=== PATIENT | female | born 1955 | race African-American/Black ===

== ENCOUNTER 2016-12-22 21:53 | Inpatient (IN) | payer SELFPAY ==
--- NOTE | ~2016-12-22 | DS ---
Discharge Summary [address] [place]. [address] NAME: GENET RUIZ : 53 STATUS : DIS Nguyen PAT#: [id number] AGE: 61 ADM/REG DATE : 12/23/16 MR#: [id number] REPORT SERV DATE: 12/26/16 DICTATED BY: JOLLY AGUAYO DATE: 12/25/16 REPORT STATUS : Draft TRANSCRIBED BY: AMANDA DATE: 12/25/16 ADMISSION DATE: 12/23/2016 DISCHARGE DATE: 12/25/2016 DISCHARGE DIAGNOSIS: 1. Hypokalemia. 2. Syncope secondary to electrolyte abnormalities. 3. Alcohol use. 4. Headache. 5. Abdominal pain with gallstones. 6. Chronic systolic heart failure. 7. Reactive lymph node in cervical chain with sinusitis. Discharge with daily weights at home. Follow PCP in one week for blood pressure and potassium check and follow up reactive nodes in neck. May require CT neck if not resolved after treatment with antibiotics. 8. Follow up with outpatient psychology. 9. Encourage continued follow with alcoholics anonymous and information for . Outpatient followup additionally with for incidental gallstones in 3 to 6 weeks. DISCHARGE MEDICATIONS: Amlodipine 5 mg one tab p.o. daily; atenolol decreased to 25 mg one tab p.o. daily instead of b.i.d.; Librium 10 mg one tab p.o. t.i.d. x3 days, then b.i.d. x3 days, then daily x3 days, then 5 mg one tab p.o. daily x3 days; vitamin D 1000 units p.o. daily; Prozac 40 mg one tab p.o. every morning; Hyzaar discontinued, changed to Cozaar 50 mg one tab p.o. daily; Mag oxide 600 mg one tab p.o. b.i.d.; nicotine patch 21 mg topical daily; Protonix 40 mg one tab p.o. daily p.r.n. reflux; potassium chloride 20 mEq p.o. daily; Aldactone 25 mg p.o. daily; Carafate 1 g p.o. before meals and at bedtime; thiamine 100 mg one tab p.o. daily x5 days; Lasix 20 mg one tab p.o. daily for weight gain of 3 pounds a day or 5 pounds a week; amoxicillin 500 mg p.o. b.i.d. x10 days; Phenergan 25 mg one tab p.o. b.i.d. p.r.n. nausea. HOSPITAL COURSE: Please see H and P for complete details. HPI: Briefly, Ms. Ruiz is a 61-year-old female with past medical history of repeat episodes of syncope with chronic history of alcoholism, heart failure, who additionally had presentation with headache. The patient was found to have profound electrolyte abnormalities with hypokalemia. Was on dual diuretic with thiazide and Lasix. The patient has had multiple episodes with this, and was also found to be on atenolol 25 b.i.d. with somewhat confusing schedule as the patient was taking half or inconsistent dose. Additionally, patient has a fairly strong alcohol use history although did not ever have signs of withdrawals while inpatient. The patient was noted to have typically decreased p.o. intake and possible had component of alcoholism with the hypokalemia. The patient was replaced and monitored inpatient for hypokalemia and electrolyte abnormalities effects on EKG. The patient did have medication blood pressure adjustments as the patient was initially hypertensive but did have heart rate changes. It was changed on atenolol to this daily. For blood pressure, the patient was also added on low-dose amlodipine, continued on losartan Discharge Summary [address] [address] NAME: GENET RUIZ : 53 STATUS : DIS Nguyen PAT#: [id number] AGE: 61 ADM/REG DATE : 12/23/16 MR#: [id number] REPORT SERV DATE: 12/26/16 DICTATED BY: JOLLY AGUAYO DATE: 12/25/16 REPORT STATUS : Draft TRANSCRIBED BY: AMANDA DATE: 12/25/16 with removal of hydrochlorothiazide component and place on low-dose spironolactone. Lasix was changed only p.r.n. doses for weight gain, as the patient has been fairly euvolemic. Additionally for alcoholism, the patient was placed on Librium taper. I counseled and educated. No signs of withdrawal were noted. The patient was encouraged on alcohol cessation. The patient has good about trying to quit. Has been in AA in the past and we encouraged. Headache. ESR was within normal limits. For abdominal pain, the patient did have imaging done, was noted to have gallstones but these do not appear to be symptomatic. Abdominal pain resolved after electrolytes were optimized and gentle fluids. For chronic systolic failure, the patient is on beta gisela, ARB. We will need to reassess for aspirin and statin with PCP after followup. Lymph node reactive. Has had sinusitis. Will complete amoxicillin treatment for 10 days. Follow up in 2 to 4 weeks for resolution and may require a CT if not reactive. All questions answered of the patient. Family was also updated the plan of care. Discharge planning took greater than 30 minutes planning, education, and arrangement of followups. JOSE/AMANDA Jolly Aguayo MD / [id number]
--- NOTE | ~2016-12-22 | HP ---
History And Physical [address] [address] NAME: GENET MATHEW : 53 STATUS : ADM Nguyen PAT#: [id number] AGE: 61 ADM/REG DATE : 12/23/16 MR#: [id number] REPORT SERV DATE: 12/23/16 DICTATED BY: PARESH MO DATE: 12/23/16 REPORT STATUS : Draft TRANSCRIBED BY: MODL DATE: 12/23/16 DATE OF ADMISSION: 12/22/2016 CHIEF COMPLAINT: A 61-year-old female presenting with a syncopal episode, abdominal pain. HISTORY OF PRESENT ILLNESS: The patient's history was obtained through careful interview with the patient, coupled with review of [facility] medical records. The patient states that for about three days she has felt ill, lightheaded. She has had nausea and then over last day she has had vomiting that comes up "like nasty bile". She describes abdominal pain, epigastric that radiates to the left upper quadrant to the back, a swollen and sharp quality, 8/10 severity. She has had slight shortness of breath, lightheadedness, and then today had a syncopal episode. She describes the headache on her bilateral temples over the last few days, about a 6/10 severity that is constant. No chest pain. No palpitations. No melena. No bright red blood per rectum. REVIEW OF SYSTEMS: Otherwise, a 14-point review of systems was obtained and was negative. PAST MEDICAL HISTORY: 1. Alcoholism. 2. GI bleed with duodenitis, atrophic gastritis, and colon polyps, seen by Dr. Stoner. 3. Hypertension. 4. Urinary tract infection. 5. Fatty liver disease. 6. Systolic congestive heart failure. Ejection fraction 45%. 7. Anxiety and depression. 8. Cholelithiasis. 9. COPD. PAST SURGICAL HISTORY: Hysterectomy. ALLERGIES: NO KNOWN DRUG ALLERGIES. SOCIAL HISTORY: She is single, lives with son. She smokes cigarettes. Drinks alcohol, mostly "[place]," some kind of whiskey hard liquor mix. FAMILY HISTORY: Diabetes and heart disease. CURRENT MEDICATIONS: History And Physical [address] [address] NAME: GENET MATHEW : 53 STATUS : ADM Nguyen PAT#: [id number] AGE: 61 ADM/REG DATE : 12/23/16 MR#: [id number] REPORT SERV DATE: 12/23/16 DICTATED BY: PARESH MO DATE: 12/23/16 REPORT STATUS : Draft TRANSCRIBED BY: AMANDA DATE: 12/23/16 1. Atenolol 25 mg p.o. b.i.d. 2. Vitamin D. 3. Prozac 40 mg p.o. daily. 4. Lasix 20 mg p.o. daily. 5. Losartan/hydrochlorothiazide 50/12.5 mg p.o. daily. 6. Magnesium 600 mg p.o. b.i.d. 7. Protonix 40 mg daily. 8. Potassium 10 mEq p.o. daily. 9. Sucralfate 1 g before meals and at bedtime. PHYSICAL EXAMINATION: VITAL SIGNS: Temperature 98.4, pulse 66, blood pressure 151/83, respiratory rate 20, and O2 saturation 98% on room air. Orthostatics were slightly positive with a pulse going from 51 while lying down to a pulse of 74 when she stands up, and just a slight drop in blood pressure. GENERAL: A pleasant, cooperative female, in no evidence of acute distress. HEENT: Pupils equal, round, and reactive to light. No conjunctival pallor. No scleral icterus. Nares are patent. Oropharynx is clear of obstruction. Mildly dry mucous membranes. NECK: Trachea midline. No thyromegaly. LYMPH: No cervical lymphadenopathy. No supraclavicular lymphadenopathy. RESPIRATORY: Clear to auscultation at bases. No wheezes, rales, or rhonchi. Normal respiratory effort. CARDIOVASCULAR: Regular rate and rhythm. No murmurs, rubs, or gallops. No extremity edema is appreciated. ABDOMEN: Minimal epigastric abdominal pain by exam. No rebound. No guarding. Nondistended. No hepatosplenomegaly is appreciated. DERMATOLOGICAL: Warm and dry extremities. No pallor. No cyanosis. PSYCHIATRIC: Normal affect. Good mood. Alert and oriented x3. LABORATORY DATA: Alcohol level 208. Troponin negative. Liver enzymes within normal limits. White blood cell count 6.8, hemoglobin 13, hematocrit 39, and platelets 279. Sodium 143, potassium 2.4, chloride 99, bicarb 34, BUN 8, creatinine 1.06, and glucose 88. Urinalysis negative for infection. IMAGING STUDIES: CT scan of the abdomen shows no acute abnormality, chronic stable cholelithiasis and fatty liver disease. ASSESSMENT AND PLAN: 1. Syncope. Place on IV fluids. Check orthostatics. Check telemetry. 2. Hypokalemia. Hold Lasix. Hold hydrochlorothiazide. Replace potassium. Check magnesium. 3. Alcoholism. Counseled alcohol abstinence. Place on a banana bag IV and start p.o. Librium. History And Physical [address] [address] NAME: GENET MATHEW : 53 STATUS : ADM Nguyen PAT#: [id number] AGE: 61 ADM/REG DATE : 12/23/16 MR#: [id number] REPORT SERV DATE: 12/23/16 DICTATED BY: PARESH MO DATE: 12/23/16 REPORT STATUS : Draft TRANSCRIBED BY: AMANDA DATE: 12/23/16 4. Bilateral worship headache. Check ESR. 5. Abdominal pain. Check lipase. Negative CT scan of the abdomen essentially. 6. Chronic systolic congestive heart failure, history of ejection fraction 45%, but in light of the patient's presentation of holding Lasix we will monitor closely. KPL/MODL Paresh Mo M.D. / [id number] CC: MD Tiffanie Patel M.D.
[~2016-12-22 21:53] MED LIST: ATEN25 PO; ATV.5 PO; KDUR10 PO; L20 PO; PROTONIX PO; PROZAC40 MG PO; ROLAIDS PO; TUMS PO; VISINE0.05 % OPH
[2016-12-22 22:15] LABS: BASOPHILS 0.3 %; BASOPHILS ABSOLUTE 0.02 10/3/uL (0.0-0.16); EOSINOPHILS 0.7 %; EOSINOPHILS ABSOLUTE 0.05 10/3/uL (0.0-0.53); ER CBC TAT 0 Hrs 03 Mins; HEMATOCRIT 38.6 % (36.0-48.0); HEMOGLOBIN 13.2 g/dL (12.0-16.0); IMMATURE GRANULOCYTES 0.1 %; IMMATURE GRANULOCYTES ABSOLUTE 0.01 10/3/uL (0.0-0.11); LYMPHOCYTES 49.5 %; LYMPHOCYTES ABSOLUTE 3.35 10/3/uL (0.67-4.30); MANUAL DIFF NO %; MEAN CORPUS HGB CONC 34.2 g/dL (32.0-36.0); MEAN CORPUSCULAR HEMOGLOB 31.2 pg (26.0-34.0); MEAN CORPUSCULAR VOLUME 91.3 fL (80-100); MONOCYTES ABSOLUTE 0.68 10/3/uL (0.21-1.20); NEUTROPHILS 39.4 %; NEUTROPHILS ABSOLUTE 2.66 10/3/uL (2.02-8.40); PLATELET COUNT 277 10/3/uL (150-400); RBC DISTRIBUTION WIDTH 14.5 % (12.0-16.0); RED CELL COUNT 4.23 10/6/uL (4.0-5.6); WHITE BLOOD CELLS 6.8 10/3/uL (4.5-10.5)
[2016-12-22 22:25] LABS: PROTIME (NOT ORD) 13.2 SEC (12.0-14.5)
[2016-12-22 22:32] LABS: BUN (BLOOD UREA NITROGEN) 8 MG/DL (6-23); CALCIUM, SERUM 9.1 MG/DL (8.5-10.4); CHEST PAIN PROFILE TAT 0 Hrs 20 Mins; CHLORIDE, SERUM 99 MMOL/L (96-112); CO2 (CARBON DIOXIDE) 34 MMOL/L (24-34); CREATININE 1.06 MG/DL (0.55-1.02); GFR AFRICAN AMERICAN 65 ML/MIN (>=60); GFR NON AFRICAN AMERICAN 56 ML/MIN (>=60); GLUCOSE, SERUM 88 MG/DL (60-99); POTASSIUM, SERUM 2.4 MMOL/L (3.5-5.3); SODIUM, SERUM 143 MMOL/L (135-148); TROPONIN I <0.02 NG/ML (<0.05)
[2016-12-22 23:54] LABS: ALBUMIN 3.2 G/DL (3.5-5.0); ALCOHOL 208 MG/DL (0); ALKALINE PHOSPHATASE 66 U/L (45-117); SGOT(AST) 66 U/L (5-40); SGPT(ALT) 31 U/L (5-65); TOTAL BILIRUBIN 0.4 MG/DL (0-1.2); TOTAL PROTEIN 7.4 G/DL (6.0-8.5)
[2016-12-22 23:55] LABS: DIRECT BILIRUBIN < 0.1 MG/DL (0.0-0.4); INDIRECT BILIRUBIN(NOT ORDER) 0.3 MG/DL (0.1-0.9)
[2016-12-23 01:11] LABS: ASCORBIC ACID (UR NOT ORDER) NEG (NEG); BILIRUBIN, URINE NEGATIVE (NEG); ER URINALYSIS TAT 0 Hrs 00 Mins; KETONE, URINE NEGATIVE (NEG); LEUKOCYTE ESTERASE(NOT OR NEG (NEG); NITRITE (URINE) NEG (NEG); WBC (NOT ORDERED) (RFLEX) 1 (0-5)
[2016-12-23] MEDS ORDERED: PROTONIX PO (01:57)
[2016-12-23] MEDS ORDERED: SUCR PO (01:57)
[2016-12-23] MEDS ORDERED: ATEN25 PO (01:58)
[2016-12-23] MEDS ORDERED: VITAMIN D1000 UNI1 PO (01:58)
[2016-12-23] MEDS ORDERED: L20 PO (01:59)
[2016-12-23] MEDS ORDERED: MAGOX4 PO (01:59)
[2016-12-23] MEDS ORDERED: COZ50 PO (01:59)
[2016-12-23] MEDS ORDERED: PROZAC40 MG PO (01:59)
[2016-12-23] MEDS ORDERED: KLOR-CON M2020 MEQ PO (02:00)
[2016-12-23 06:41] LABS: POTASSIUM, SERUM 2.6 MMOL/L (3.5-5.3)
[2016-12-23 13:20] LABS: BASOPHILS 0.1 %; BASOPHILS ABSOLUTE 0.01 10/3/uL (0.0-0.16); EOSINOPHILS 0.6 %; EOSINOPHILS ABSOLUTE 0.04 10/3/uL (0.0-0.53); HEMATOCRIT 36.1 % (36.0-48.0); HEMOGLOBIN 12.2 g/dL (12.0-16.0); IMMATURE GRANULOCYTES 0.1 %; IMMATURE GRANULOCYTES ABSOLUTE 0.01 10/3/uL (0.0-0.11); LYMPHOCYTES 39.1 %; LYMPHOCYTES ABSOLUTE 2.74 10/3/uL (0.67-4.30); MEAN CORPUS HGB CONC 33.8 g/dL (32.0-36.0); MEAN CORPUSCULAR HEMOGLOB 31.1 pg (26.0-34.0); MEAN CORPUSCULAR VOLUME 92.1 fL (80-100); MEAN PLATELET VOLUME 9.2 fL (9.2-13.0); MONOCYTES 9.1 %; MONOCYTES ABSOLUTE 0.64 10/3/uL (0.21-1.20); NEUTROPHILS ABSOLUTE 3.56 10/3/uL (2.02-8.40); PLATELET COUNT 260 10/3/uL (150-400); RBC DISTRIBUTION WIDTH 14.7 % (12.0-16.0); RED CELL COUNT 3.92 10/6/uL (4.0-5.6)
[2016-12-23 13:27] LABS: PARTIAL THROMBO TIME 34.3 SEC (22.5-37.2); PROTIME (NOT ORD) 13.4 SEC (12.0-14.5)
[2016-12-23 13:28] LABS: MANUAL DIFF NO %
[2016-12-23 13:44] LABS: A/G RATIO 0.7 (0.7-1.9); ALBUMIN 2.7 G/DL (3.5-5.0); ALKALINE PHOSPHATASE 58 U/L (45-117); BUN (BLOOD UREA NITROGEN) 8 MG/DL (6-23); CHLORIDE, SERUM 102 MMOL/L (96-112); CO2 (CARBON DIOXIDE) 31 MMOL/L (24-34); CREATININE 0.94 MG/DL (0.55-1.02); GFR AFRICAN AMERICAN 75 ML/MIN (>=60); GFR NON AFRICAN AMERICAN 65 ML/MIN (>=60); GLOBULIN 3.8 G/DL (2.5-4.1); GLUCOSE, SERUM 104 MG/DL (60-99); POTASSIUM, SERUM 3.9 MMOL/L (3.5-5.3); SGOT(AST) 62 U/L (5-40); SGPT(ALT) 25 U/L (5-65); SODIUM, SERUM 141 MMOL/L (135-148); TOTAL BILIRUBIN 1.3 MG/DL (0-1.2); TOTAL PROTEIN 6.5 G/DL (6.0-8.5)
[2016-12-23 14:00] LABS: SED RATE 17 MM/HR (0-20)
[2016-12-24 05:44] LABS: BASOPHILS 0.2 %; BASOPHILS ABSOLUTE 0.01 10/3/uL (0.0-0.16); EOSINOPHILS 1.8 %; EOSINOPHILS ABSOLUTE 0.11 10/3/uL (0.0-0.53); HEMATOCRIT 36.5 % (36.0-48.0); HEMOGLOBIN 12.1 g/dL (12.0-16.0); IMMATURE GRANULOCYTES 0.2 %; IMMATURE GRANULOCYTES ABSOLUTE 0.01 10/3/uL (0.0-0.11); LYMPHOCYTES 41.8 %; MEAN CORPUS HGB CONC 33.2 g/dL (32.0-36.0); MEAN CORPUSCULAR HEMOGLOB 30.7 pg (26.0-34.0); MEAN CORPUSCULAR VOLUME 92.6 fL (80-100); MONOCYTES 9.2 %; MONOCYTES ABSOLUTE 0.57 10/3/uL (0.21-1.20); NEUTROPHILS 46.8 %; NEUTROPHILS ABSOLUTE 2.92 10/3/uL (2.02-8.40); PLATELET COUNT 239 10/3/uL (150-400); RBC DISTRIBUTION WIDTH 14.7 % (12.0-16.0); RED CELL COUNT 3.94 10/6/uL (4.0-5.6); WHITE BLOOD CELLS 6.2 10/3/uL (4.5-10.5)
[2016-12-24 05:48] LABS: MANUAL DIFF NO %
[2016-12-24 06:01] LABS: A/G RATIO 0.7 (0.7-1.9); ALBUMIN 2.7 G/DL (3.5-5.0); ALKALINE PHOSPHATASE 68 U/L (45-117); BUN (BLOOD UREA NITROGEN) 7 MG/DL (6-23); CALCIUM, SERUM 8.4 MG/DL (8.5-10.4); CHLORIDE, SERUM 104 MMOL/L (96-112); CO2 (CARBON DIOXIDE) 31 MMOL/L (24-34); CREATININE 0.91 MG/DL (0.55-1.02); GFR AFRICAN AMERICAN 78 ML/MIN (>=60); GFR NON AFRICAN AMERICAN 68 ML/MIN (>=60); GLOBULIN 3.9 G/DL (2.5-4.1); GLUCOSE, SERUM 98 MG/DL (60-99); POTASSIUM, SERUM 3.2 MMOL/L (3.5-5.3); SGOT(AST) 46 U/L (5-40); SGPT(ALT) 24 U/L (5-65); SODIUM, SERUM 143 MMOL/L (135-148); TOTAL BILIRUBIN 1.4 MG/DL (0-1.2); TOTAL PROTEIN 6.6 G/DL (6.0-8.5)
[2016-12-25 04:48] LABS: BASOPHILS 0.3 %; BASOPHILS ABSOLUTE 0.02 10/3/uL (0.0-0.16); EOSINOPHILS 2.7 %; EOSINOPHILS ABSOLUTE 0.19 10/3/uL (0.0-0.53); HEMATOCRIT 37.8 % (36.0-48.0); HEMOGLOBIN 12.4 g/dL (12.0-16.0); IMMATURE GRANULOCYTES 0.1 %; IMMATURE GRANULOCYTES ABSOLUTE 0.01 10/3/uL (0.0-0.11); LYMPHOCYTES 35.9 %; MEAN CORPUS HGB CONC 32.8 g/dL (32.0-36.0); MEAN CORPUSCULAR HEMOGLOB 30.9 pg (26.0-34.0); MEAN CORPUSCULAR VOLUME 94.3 fL (80-100); MEAN PLATELET VOLUME 9.6 fL (9.2-13.0); MONOCYTES 9.1 %; MONOCYTES ABSOLUTE 0.63 10/3/uL (0.21-1.20); NEUTROPHILS 51.9 %; NEUTROPHILS ABSOLUTE 3.61 10/3/uL (2.02-8.40); PLATELET COUNT 255 10/3/uL (150-400); RBC DISTRIBUTION WIDTH 14.5 % (12.0-16.0); RED CELL COUNT 4.01 10/6/uL (4.0-5.6)
[2016-12-25 04:53] LABS: MANUAL DIFF NO %
[2016-12-25 05:08] LABS: BUN (BLOOD UREA NITROGEN) 9 MG/DL (6-23); CALCIUM, SERUM 8.7 MG/DL (8.5-10.4); CHLORIDE, SERUM 103 MMOL/L (96-112); CO2 (CARBON DIOXIDE) 29 MMOL/L (24-34); CREATININE 0.92 MG/DL (0.55-1.02); GFR AFRICAN AMERICAN 77 ML/MIN (>=60); GFR NON AFRICAN AMERICAN 67 ML/MIN (>=60); GLUCOSE, SERUM 88 MG/DL (60-99); POTASSIUM, SERUM 3.7 MMOL/L (3.5-5.3); SODIUM, SERUM 139 MMOL/L (135-148)
[2016-12-25] MEDS ORDERED: NORV5 PO (11:22)
[2016-12-25] MEDS ORDERED: B1100 PO (11:36)
[2016-12-25] MEDS ORDERED: L10 PO (11:38)
[2016-12-25] MEDS ORDERED: AMOXIL500 MG PO (11:39)
[2016-12-25] MEDS ORDERED: SPIRO25 PO (11:40)
[2016-12-25] MEDS ORDERED: PR25 PO (11:41)
[2016-12-25] MEDS ORDERED: HABIT21 TOP (11:41)
== END 2016-12-25 14:25 | disposition home or self-care (01) | DRG 641 ==
LOC: ER 21:53 → 5NO 12-23 03:29
PROVIDERS: Emergency Medicine; Specialist; Student in an Organized Health Care Education/Training Program
DX: E87.6 Hypokalemia (principal); I11.0 Hypertensive heart disease with heart failure; I50.22 Chronic systolic (congestive) heart failure; K76.0 Fatty (change of) liver, not elsewhere classified; R55 Syncope and collapse; F10.20 Alcohol dependence, uncomplicated; R51 Headache; K80.80 Other cholelithiasis without obstruction; J32.9 Chronic sinusitis, unspecified; R10.13 Epigastric pain; J44.9 Chronic obstructive pulmonary disease, unspecified; F17.210 Nicotine dependence, cigarettes, uncomplicated
CPT/HCPCS: 71020; 74176; 76536; 80048; 80053; 80076; 81001; 82150; 83690; 83735; 84132; 84443; 84484; 85025; 85610; 85652; 85730; 93005; 96365; 96366; 96375; 99285; A9270-GY; G0480; J2405; J3411